=== PATIENT | male | born 1955 | race Caucasian/White ===

== ENCOUNTER 2018-11-29 17:56 | Observation (INO) | payer BC ==
[~2018-11-29] VITALS: Ht 180.3 cm; Wt 111.5 kg
[~2018-11-29 17:56] MED LIST: ALEVE220 MG PO; ASPIRIN E.C. 8181 MG PO; LISINOPRIL10 MG PO; PLAVIX 75MG TAB75 MG PO; PREDNISONE20 MG PO; SIMVASTATIN40 MG PO; SUPER EPA 1201200 MG PO; TOPROL XL25 MG PO; ZOLOFT100 MG PO
[2018-11-29 18:23] LABS: BASO # 0.1 (0.0-0.2); BASO % 0.3 % (0.0-2.0); EOS # 0.1 (0.0-0.7); EOS % 0.6 % (0-4.0); GRAN # 16.3 (1.4-6.5); HEMATOCRIT 44.4 % (42.0-52.0); HEMOGLOBIN 15.6 g/dl (13.5-18.0); LYMPH # 1.9 (1.2-3.4); LYMPH % 9.6 % (20.0-51.0); MEAN CELL VOLUME 94 fl (80.0-100.0); MEAN CORPUSCULAR HEMOGLOBIN 33 pg (27.0-31.0); MEAN CORPUSCULAR HGB CONC 35 g/dl (33.0-37.0); MEAN PLATELET VOLUME 8.7 fl (7.4-10.4); MONO # 1.4 (0.1-0.6); MONO % 6.8 % (1.7-9.3); PLATELET COUNT 311 K/mm3 (130-400); RED BLOOD COUNT 4.74 M/mm3 (4.20-5.60); REDCELL DISTRIBUTION WIDTH-CV 12.2 % (11.5-14.5)
[2018-11-29 18:29] LABS: INR 1.1 (0.8-3.0); PROTHROMBIN TIME 12.2 SECONDS (9.7-12.8)
[2018-11-29 18:30] LABS: ALBUMIN 4.2 gm/dL (3.5-5.0); BILIRUBIN,TOTAL 0.4 mg/dL (0.0-1.0); CALCIUM 9.6 mg/dL (8.4-10.2); CREATININE, serum 0.96 mg/dL (0.66-1.25); POTASSIUM 3.6 mmol/L (3.4-5.0); TOTAL PROTEIN 7.4 gm/dL (6.4-8.2)
[2018-11-29 18:32] LABS: PARTIAL THROMBOPLASTIN TIME 32.5 SECONDS (26.0-37.0)
[2018-11-29] MEDS ORDERED: PRINIVIL10 MG PO (18:36)
[2018-11-29] MEDS ORDERED: PLAVIX 75MG TAB75 MG PO (18:37)
[2018-11-29] MEDS ORDERED: TOPROL XL 25MG25 MG PO (18:37)
[2018-11-29] MEDS ORDERED: ZOCOR 40MG40 MG PO (18:38)
[2018-11-29] MEDS ORDERED: MICROZIDE12.5 MG PO (18:38)
[2018-11-29 18:42] LABS: TROPONIN-I 0.015 ng/mL (0.000-0.035)
--- NOTE | 2018-11-29 21:09 | NUR ---
Pt. arrived to the floor via wheel chair, pt. able to ambulate to chair independently. Pt. is A&OX3, assessment complete. INT to lt. arm patent. Pt. denies pain at this time. Call light within reach.
[2018-11-29 21:22] VITALS: BP 125/73; PULSE 68; TEMP 98.1
[2018-11-29 22:37] LABS: CALCIUM 9.4 mg/dL (8.4-10.2); CREATININE, serum 0.85 mg/dL (0.66-1.25); POTASSIUM 3.9 mmol/L (3.4-5.0)
[2018-11-29 23:52] VITALS: BP 109/63; PULSE 63; TEMP 98
[2018-11-30 03:46] VITALS: BP 121/60; PULSE 57; TEMP 98.3
--- NOTE | 2018-11-30 06:08 | NUR ---
Pt. laying in bed. Pt. remains A&OX3. INT to lt. ac remains patent. Pt. denies pain or other needs. Reminded pt. to only get up to go to the bathroom. Pt. did not seem very interested in this. Pt. denies further needs, call light within reach.
[2018-11-30] MEDS ORDERED: ZOLOFT 100MG100 MG PO (06:43)
[2018-11-30 07:30] VITALS: BP 104/44; PULSE 57; TEMP 98.5
--- NOTE | 2018-11-30 08:00 | NUR ---
Patient resting in bedside recliner at this time. Patient is alert and oriented, answers questions appropriately. Patient denies chest pain since recieving nitroglycerine in the ER prior to admission. Patient states that he would like to go home today, as he has not had any further pain or discomfort. Patient remains NPO this morning, denies needs at this time. Call light within reach.
--- NOTE | 2018-11-30 09:44 | NUR ---
SW met with patient to discuss discharge planning. Patient lives independently at home with his . Patient's PCP is Dr Tolliver and he obtains prescriptions from [facility]. Patient does not use any home health services or DME. Patient does not have a DPOA and is not interested in that at this time. SW does not anticipate any discharge needs.
[2018-11-30 11:28] VITALS: BP 114/58; PULSE 66; TEMP 97.9
--- NOTE | 2018-11-30 12:00 | NUR ---
Discharge teaching completed, at bedside. INT discontinued, hemostasis achieved. INT catheter intact upon removal. Telemetry removed. 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 Importance of follow up appointment on 12/02 with cardiology stressed, symptoms warrenting a return to the ED discussed. Patient and verbalized understanding, deny questions at this time. Patient escorted out by staff.
--- NOTE | 2018-11-30 13:17 | NUR ---
Chaplain zambranoyefabricio and visited with patient and spouse.
== END 2018-11-30 12:45 | disposition home or self-care (01) ==
LOC: COL.ER 17:56 → SURG 19:38
PROVIDERS: Emergency Medicine; ADMIT Internal Medicine Interventional Cardiology
DX: I21.4 Non-ST elevation (NSTEMI) myocardial infarction (principal); I25.10 Atherosclerotic heart disease of native coronary artery without angina pectoris; F17.210 Nicotine dependence, cigarettes, uncomplicated; I10 Essential (primary) hypertension; R00.1 Bradycardia, unspecified; E78.5 Hyperlipidemia, unspecified; Z95.5 Presence of coronary angioplasty implant and graft; Z79.02 Long term (current) use of antithrombotics/antiplatelets; Z79.82 Long term (current) use of aspirin; Z79.899 Other long term (current) drug therapy

== ENCOUNTER 2018-12-04 12:35 | Day surgery (SDC) | payer BC ==
[2018-12-04] VITALS (9 sets, daily range): BP systolic 126–135; BP diastolic 70–77; PULSE 65–81
[~2018-12-04] VITALS: Ht 180.3 cm; Wt 111.0 kg
[~2018-12-04 12:35] MED LIST changes: +MICROZIDE12.5 MG PO; +PRINIVIL10 MG PO; +TOPROL XL 25MG25 MG PO; +ZOCOR 40MG40 MG PO; +ZOLOFT 100MG100 MG PO
[2018-12-04] MEDS ORDERED: NITROSTAT0.4 MG/TAB SL (12:54)
[2018-12-04 13:24] LABS: HEMATOCRIT 43.7 % (42.0-52.0); HEMOGLOBIN 15.5 g/dl (13.5-18.0); MEAN CELL VOLUME 92 fl (80.0-100.0); MEAN CORPUSCULAR HEMOGLOBIN 33 pg (27.0-31.0); MEAN CORPUSCULAR HGB CONC 36 g/dl (33.0-37.0); MEAN PLATELET VOLUME 8.9 fl (7.4-10.4); PLATELET COUNT 331 K/mm3 (130-400); RED BLOOD COUNT 4.73 M/mm3 (4.20-5.60); REDCELL DISTRIBUTION WIDTH-CV 11.9 % (11.5-14.5)
[2018-12-04 13:31] LABS: CALCIUM 9.5 mg/dL (8.4-10.2); CREATININE, serum 0.76 mg/dL (0.66-1.25); POTASSIUM 3.9 mmol/L (3.4-5.0)
[2018-12-04 13:36] LABS: INR 1.1 (0.8-3.0); PROTHROMBIN TIME 12.3 SECONDS (9.7-12.8)
--- NOTE | 2018-12-04 14:49 | NUR ---
ALL SEDATION MEDICATIONS WILL BE GIVEN DURING PROCEDURE WITH VERBAL ORDER FROM MD NORRIS. SEE MERGE FOR ADMIN TIMES. SEE MERGE FOR RASS/MODERATE SEDATION ASSESSMENTS DURING AND POST PROCEDURE.
[2018-12-04] MEDS ORDERED: ASPIRIN 81M81 MG/TA2 PO (15:32)
--- NOTE | 2018-12-04 15:43 | NUR ---
PT VSS AND AX0X3 POST CLEAN CARDIAC CATH. RIGHT FEMORAL SITE C/D/I AND SOFT ON PALPATION. PULSES READILY PALPABLE. PT DENIES PAIN AT THIS TIME. RESTING COMFORTABLY IN BED.
--- NOTE | 2018-12-04 18:12 | NUR ---
pt vss and ax0x3 post cardiac cath. Right femoral site c/d/i and soft on palpation. tolerating fluids po, but does not want to eat as for he is getting dinner. Ambulatred twice around nurses station without issue. Discharge instructions reviewed and signed. 20g removd from left ac. 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
== END 2018-12-04 18:16 | disposition home or self-care (01) ==
LOC: COL.CAR 12:35
PROVIDERS: Internal Medicine Interventional Cardiology
DX: I25.110 Atherosclerotic heart disease of native coronary artery with unstable angina pectoris (principal); I10 Essential (primary) hypertension; E78.5 Hyperlipidemia, unspecified; Z95.5 Presence of coronary angioplasty implant and graft; I25.2 Old myocardial infarction; Z79.02 Long term (current) use of antithrombotics/antiplatelets; Z87.891 Personal history of nicotine dependence; Z88.0 Allergy status to penicillin; Z88.3 Allergy status to other anti-infective agents; Z91.013 Allergy to seafood
CPT/HCPCS: J1200; J1644; J2250; J2930; J3010; Q9967

== ENCOUNTER 2018-12-23 09:53 | Emergency (ER) | payer BC ==
[~2018-12-23] VITALS: Ht 180.3 cm; Wt 111.4 kg
[~2018-12-23 09:53] MED LIST changes: +ASPIRIN 81M81 MG/TA2 PO; +NITROSTAT0.4 MG/TAB SL
[2018-12-23 09:55] VITALS: TEMP 98.2
[2018-12-23 10:13] LABS: BASO % 0.3 % (0.0-2.0); EOS # 0.1 (0.0-0.7); GRAN # 8.3 (1.4-6.5); GRAN % 78.9 % (42.2-75.2); HEMATOCRIT 42.8 % (42.0-52.0); HEMOGLOBIN 14.8 g/dl (13.5-18.0); LYMPH # 1.3 (1.2-3.4); LYMPH % 12.4 % (20.0-51.0); MEAN CELL VOLUME 93 fl (80.0-100.0); MEAN CORPUSCULAR HEMOGLOBIN 32 pg (27.0-31.0); MEAN CORPUSCULAR HGB CONC 35 g/dl (33.0-37.0); MEAN PLATELET VOLUME 9.2 fl (7.4-10.4); MONO # 0.8 (0.1-0.6); MONO % 7.1 % (1.7-9.3); PLATELET COUNT 258 K/mm3 (130-400); RED BLOOD COUNT 4.58 M/mm3 (4.20-5.60); REDCELL DISTRIBUTION WIDTH-CV 12.3 % (11.5-14.5)
[2018-12-23 10:20] LABS: INR 1.1 (0.8-3.0); PROTHROMBIN TIME 12.4 SECONDS (9.7-12.8)
[2018-12-23 10:23] LABS: ALANINE AMINOTRANSFERASE 24 U/L (21-72); ALBUMIN 3.9 gm/dL (3.5-5.0); ALKALINE PHOSPHATASE 87 U/L (50-136); ANION GAP 8 mmol/L (7-16); AST,SGOT 30 U/L (15-37); BILIRUBIN,TOTAL 0.4 mg/dL (0.0-1.0); BLOOD UREA NITROGEN 14 mg/dL (9-20); CALCIUM 9.4 mg/dL (8.4-10.2); CARBON DIOXIDE 26 mmol/L (22-30); CHLORIDE 105 mmol/L (98-107); CREATININE, serum 0.78 (0.66-1.25); GLUCOSE 116 mg/dL (74-106); LIPASE 96 U/L (23-300); POTASSIUM 4.1 mmol/L (3.4-5.0); SODIUM 139 mmol/L (137-145); TOTAL PROTEIN 6.7 gm/dL (6.4-8.2)
[2018-12-23 10:35] LABS: TROPONIN-I < 0.012 ng/mL (0.000-0.035)
[2018-12-23] MEDS ORDERED: LIPITOR 40MG TA40 MG PO (10:40)
[2018-12-23] MEDS ORDERED: IMDUR 30MG30 MG/TAB PO (10:40)
[2018-12-23] MEDS ORDERED: RANEXA 500MG T500 MG PO (10:50)
[2018-12-23 15:51] VITALS: BP 139/80; PULSE 62
== END 2018-12-23 15:53 | disposition home or self-care (01) ==
LOC: COL.ER 09:53
PROVIDERS: Emergency Medicine
DX: I21.4 Non-ST elevation (NSTEMI) myocardial infarction (principal); R79.89 Other specified abnormal findings of blood chemistry; I25.10 Atherosclerotic heart disease of native coronary artery without angina pectoris; I10 Essential (primary) hypertension; E78.5 Hyperlipidemia, unspecified; F17.210 Nicotine dependence, cigarettes, uncomplicated; Z95.5 Presence of coronary angioplasty implant and graft
CPT/HCPCS: J1644; J2270; J2405; J7030